=== PATIENT | male | born 1990 | race Caucasian/White ===

== ENCOUNTER 2017-03-12 19:35 | Emergency (ER) | payer BC, OTHER ==
[~2017-03-12] VITALS: Ht 185.4 cm; Wt 83.0 kg
[2017-03-12 19:37] VITALS: BP 123/76
== END 2017-03-12 21:25 | disposition home or self-care (01) ==
LOC: ED 21:00
DX: S09.90XA Unspecified injury of head, initial encounter (principal); F10.229 Alcohol dependence with intoxication, unspecified; Y04.2XXA Assault by strike against or bumped into by another person, initial encounter
CPT/HCPCS: 70450; 70486; 72125; 99284

== ENCOUNTER 2019-10-27 17:59 | Emergency (ER) | payer SELFPAY ==
[~2019-10-27] VITALS: Ht 182.9 cm; Wt 82.5 kg
[2019-10-27] MEDS ORDERED: LORazepam 2 MG/ML, 1ML ONE (18:26)
[2019-10-27] MEDS ORDERED: LORazepam 2 MG/ML, 1ML IM ONE (18:30)
--- NOTE | 2019-10-27 18:31 | NUR ---
TASK RN: FIRST CONTACT WITH PT. NAD NOTED. PT VISABLY ANXIOUS. PT REPORTS "I'VE DONE TOO MUCH COCAINE IN THE LAST DAY. MY NECK IS SO TIGHT". PT PWD. +PALPITATIONS. +FULL CERVICAL ROM; DENIES FEVER/SOB/N/V/DUARTE. ERP AT BEDSIDE. BP/SPO2/ECG MONITORING IN PLACE. SINUS TACH ON MONITOR. PT MEDICATED PER EMAR.
[2019-10-27 18:54] LABS: ALBUMIN 4.1 g/dL (3.4-5.0); ANION GAP 10 mmol/L (5-15); CALCIUM 8.8 mg/dL (8.5-10.1); CHLORIDE 104 mmol/L (98-107); CREATININE 1.39 mg/dL (0.7-1.3)
[2019-10-27 18:57] LABS: TROPONIN I < 0.015 ng/mL (0.000-0.045)
[2019-10-27 19:15] VITALS: BP 130/64
--- NOTE | 2019-10-27 19:16 | NUR ---
PT REPORTS SIGNIFICANT IMPROVEMENT IN S/S. CHART UP FOR RECHECK. AWAITING DISPO
--- NOTE | 2019-10-27 19:29 | NUR ---
DC EDUCATION PROVIDED, PT DEMONSTRATES UNDERSTANDING. PT AMBULATED STEADILY TO DC WITH RN AND SO. SO TO TRANSPORT PT HOME.
== END 2019-10-27 19:32 | disposition home or self-care (01) ==
LOC: ED 19:18
DX: R00.2 Palpitations (principal); F41.1 Generalized anxiety disorder
CPT/HCPCS: 36415; 80048; 82040; 84484; 93005; 96372; 99284; J2060